=== PATIENT | female | born 1945 | race Caucasian/White ===

== ENCOUNTER 2017-10-29 22:34 | Inpatient (IN) | payer MEDICARE, OTHER ==
[~2017-10-29] VITALS: Ht 170.2 cm; Wt 54.4 kg
--- NOTE | 2017-10-30 00:34 | NUR ---
PRE-ADMISSION NOTE Pt seen in intake office. Pt is not currently intoxicated and not experiencing s/s of withdrawal. Pt appears to be lethargic, but states that hse has been awake for almost 24hrs. V/S: P:75, RR:16, SPO2:96, BP:159/71. Pt is A/O x 4 and has a steady gait. Pt is acceptable for admission to the unit.
[2017-10-30] MEDS ORDERED: ONDANSETRON ODT 4 MG TAB.RAPDIS SL PRN (00:45)
[2017-10-30] MEDS ORDERED: HYDROXYZINE PAMOATE 25 MG CAPSULE PO PRN (00:45)
[2017-10-30] MEDS ORDERED: LORAZEPAM 1 MG TABLET PO PRN ×2 (00:45)
[2017-10-30] MEDS ORDERED: MAG HYDROX/AL HYDROX/SIMETH 30 ML LIQUID UDC PO PRN (00:45)
[2017-10-30] MEDS ORDERED: ONDANSETRON 4 MG/2 ML VIAL IM PRN (00:45)
[2017-10-30] MEDS ORDERED: ACETAMINOPHEN 325 MG TABLET PO PRN (00:45)
[2017-10-30] MEDS ORDERED: MAGNESIUM HYDROXIDE 30 ML LIQUID UDC PO PRN (00:45)
[2017-10-30] MEDS ORDERED: LOPERAMIDE HCL 2 MG CAPSULE PO PRN ×2 (00:45)
[2017-10-30] MEDS ORDERED: diphenhydrAMINE 50 MG CAPSULE PO PRN (00:45)
[2017-10-30] MEDS ORDERED: DICYCLOMINE HCL 20 MG TABLET PO PRN (00:45)
[2017-10-30] MEDS ORDERED: IBUPROFEN 400 MG TABLET PO PRN (00:45)
[2017-10-30] MEDS ORDERED: MIRALAX 17 GM POWD.PACK PO PRN (00:45)
[2017-10-30] MEDS ORDERED: THIAMINE HCL 200 MG/2 ML VIAL IM ONE (01:00)
--- NOTE | 2017-10-30 01:10 | NUR ---
ADMISSION NOTE Pt is a 72 y/o female who is being admitted for medically supervised withdrawal from ETOH, specifically white wine. The pt is not intoxicated and is currently not experiencing any s/s of withdrawal, except for anxiety. Pt appears disheveled, w/ a depressed mood. She is oriented to person, place, time, and purpose. Pts speech is soft and slow, and she states she is tired since she has been awake since her flight left 18 hrs ago. Pt has good eye contact. Pt states that she cant recall any withdrawal signs or symptoms. She did state upon further inquiry that she did become anxious the last time she didnt have a drink for 7 days. Pt denies any h/o withdrawal induced seizures or delirium. Pt also states she has never had a black out. Pt states current substance use as follows: 1. ETOH (White Wine): 750ml daily for the past year. Pts last use was 550ml in the afternoon of 10/28/17. She first began drinking 40yrs ago. She states she is seeing treatment today because Its time to quit drinking. She states her encouraged her to seek treatment. We are both concerned about me drinking at my age and the affect it will have on my health. Last month I was gardening and I couldnt get up off the ground. She states that she began drinking as a way to do deal with stress and as a coping mechanism. I need to find a way to relax other than drinking wine. She states that she has never been to treatment before and has never stopped drinking for more than 10 days at a time. She states that she is ready to do whatever it takes to quit and nothing is out of the question in terms of maintaining sobriety. She would like to continue treatment at [facility] here in [place]. Pt states that her is a really good support system and will encourage her in sobriety. V/S: T:98.4, P:79, RR:16, SPO2:97, BP:139/67. Pt denies any pain. Pulse is strong and regular. Respirations are unlabored and even. Skin is intact. Pt follows a regular diet at home and takes daily vitamins. Pt is allergic to penicillin. She smokes approx. 20 cigarettes per day. Pt doesnt recall the name of her PCP. Pt had pancreatitis in 2017 and was admitted to the hospital for 8 days for a cholecystectomy. Pt doesnt a psychiatrist. Education was provided to her on plan of care including detox medications, group therapy, 1:1 therapy, and discharge planning. She was encouraged to keep open line of communication and verbalize how she is feeling. Verbalized support for pt in her recovery.
[2017-10-30 02:45] LABS: BASOPHILS % (AUTO) 0.7 % (0.0-2.0); EOSINOPHILS # (AUTO) 0.1 K/uL (0.0-0.7); EOSINOPHILS % (AUTO) 1.3 % (0.0-7.0); HEMATOCRIT 42.5 % (31.2-41.9); HEMOGLOBIN 14.3 g/dL (10.9-14.3); LYMPHOCYTES # (AUTO) 1.6 K/uL (20.0-40.0); LYMPHOCYTES % (AUTO) 24.8 % (20.5-51.5); MEAN CORPUSCULAR HEMOGLOBIN 33.9 uug (24.7-32.8); MEAN CORPUSCULAR HGB CONC 34 g/dL (32.3-35.6); MEAN CORPUSCULAR VOLUME 100.9 fL (75.5-95.3); MONOCYTES # (AUTO) 0.9 K/uL (2.0-10.0); MONOCYTES % (AUTO) 14.5 % (0.0-11.0); NEUTROPHILS # (AUTO) 3.7 K/uL (1.8-8.9); NEUTROPHILS % (AUTO) 58.7 % (38.5-71.5); PLATELET COUNT (AUTO) 180 K/uL (179-408); RED BLOOD CELL COUNT(AUTO) 4.21 MIL/uL (3.63-4.92); WHITE BLOOD COUNT (AUTO) 6.3 K/uL (3.8-11.8)
[2017-10-30 02:55] LABS: ALANINE AMINOTRANSFERASE 42 U/L (14-59); ALKALINE PHOSPHATASE 62 U/L (50-136); AMYLASE 91 U/L (25-115); ASPARTATE AMINOTRANSFERASE 34 U/L (15-37); BILIRUBIN,TOTAL 0.5 mg/dL (0.2-1.0); CARBON DIOXIDE 27 mmol/L (21-32); CHLORIDE 103 mmol/L (98-107); CREATININE 0.7 mg/dL (0.6-1.3); GLUCOSE 97 mg/dL (74-106); LIPASE 333 U/L (73-393); MAGNESIUM 2.1 mg/dL (1.8-2.4); POTASSIUM 4.2 mmol/L (3.5-5.1); TOTAL PROTEIN, SERUM 7.4 g/dL (6.4-8.2); UREA NITROGEN, BLOOD 18 mg/dL (7-18)
[2017-10-30 03:06] LABS: THYROID STIMULATING HORMONE 1.742 mIU/mL (0.358-3.740)
[2017-10-30 03:17] LABS: ETHANOL < 3 MG/DL (0-0)
--- NOTE | 2017-10-30 04:02 | NUR ---
CIWA DEFERRED. V/S REFUSED Pt is in bed w/ his eyes closed. Pt's respirations are unlabored and even.
[2017-10-30 04:07] LABS: *AMPHETAMINE, URINE NEGATIVE (NEGATIVE); *BARBITURATE, URINE NEGATIVE (NEGATIVE); *CANNABINOID, URINE NEGATIVE (NEGATIVE); *COCCAINE, URINE NEGATIVE (NEGATIVE); *OPIATE, URINE NEGATIVE (NEGATIVE); *PHENCYCLIDINE SCREEN,URINE NEGATIVE (NEGATIVE)
--- NOTE | 2017-10-30 07:10 | NUR ---
END OF SHIFT NOTE Endorsed pt to oncoming nurse. Pt is a 72 y/o female A/O to person, place, time, and purpose. Pt was admitted for medically supervised withdrawal from ETOH. Pt was not intoxicated and not currently experiencing withdrawal upon admission to the unit. Pt did begin to exhibit anxiety during Initial Assessment. Pt rcvd no PRN medications during shift. Pt denies any S/I or H/I. Pts fluid intake was 750ml and she slept for 4 hrs. Last CIWA 4 @ 0100. Call light is within reach.
[2017-10-30 08:00] VITALS: BP 142/71
--- NOTE | 2017-10-30 08:00 | NUR ---
Start of Shift Notes/CIWA Assessment: Received patient in her room. Awake, alert and verbally responsive. Oriented x 4. Denies S/I or H/I noted. No AV hallucinations. Patient appears anxious, pacing in her room with sweaty palms. Appears disheveled with worried facial expression and demanded to smoke. Patient also demanded to speak with her . Explained unit's policies and procedures. She verbalized good understanding. Gross tremors observed when patient is drinking water from a bottle. CIWA 14. Patient is a 72 year old female admitted for ETOH withdrawal who was placed on PRNs at this time to manage symptoms related to ETOH withdrawal. Per night report, patient did not receive any PRNs. Last CIWA 14. Slept for a total of 6 hours. All needs met and attended. Will continue to monitor closely.
[2017-10-30] MEDS: THIAMINE HCL 100 MG TABLET PO SCH (08:41)
[2017-10-30] MEDS: MULTIVITAMINS,THERAPEUTIC TABLET PO SCH (08:41)
[2017-10-30] MEDS: CLONIDINE HCL 0.1 MG TABLET PO PRN ×2 (08:41→11:35)
[2017-10-30] MEDS: FOLIC ACID 1 MG TABLET PO SCH (08:41)
[2017-10-30] MEDS ORDERED: 5 DAY TAPER OF LORAZEPAM -SERENITY PROTOCOL PO PRN (09:15)
[2017-10-30] MEDS: LORAZEPAM 1 MG TABLET PO SCH ×3 (09:32→20:36)
--- NOTE | 2017-10-30 11:35 | NUR ---
Clonidine 0.1mg PO given: Patient's blood pressure 174/78 while laying down in bed. Patient verbalizes complain of anxiety being in treatment for the first time. Redirection provided. Reassurance provided. Medicated patient with Clonidine 0.1mg PO as ordered. Will monitor for effectiveness.
[2017-10-30 12:00] VITALS: BP 174/78
--- NOTE | 2017-10-30 12:04 | NUR ---
CIWA Assessment: CIWA 12, patient continues to present with s/s of withdrawal m/b facial flushing, gross tremors, sweating, anxiety and agitation. Offered PRNs. Oral fluids encouraged. All needs met and attended. Will continue to monitor.
--- NOTE | 2017-10-30 12:35 | NUR ---
Re-assessment: Clonidine Patient's blood pressure 137/82. She appears less anxious. Less tremors noted. PRN Clonidine was effective.
[2017-10-30 16:00] VITALS: BP 139/72
--- NOTE | 2017-10-30 16:30 | NUR ---
CIWA Assessment: CIWA 11, patient continues to present with anxiety, gross tremors, intermittent perspiration, malaise, fatigue, and generalized discomfort. Oral fluids encouraged. Continue with current taper meds as ordered.
--- NOTE | 2017-10-30 19:02 | NUR ---
End of Shift Notes: Patient initiated her 4-day Ativan taper to manage symptoms related to ETOH withdrawal. VS monitored closely. Noted with elevated blood pressure during the day requiring patient to be medicated with Clonidine 0.1mg PO for elevated blood pressure at 1135. Withdrawal symptoms were closely monitored. Initial CIWA 14, patient presented with anxiety, agitation, fatigue, malaise, difficulty concentrating, gross tremors, intermittent perspiration, facial flushing, dark circles around eyes, slumped posture, worried and suspicious, anhedonia, irritable, paranoid, restricted, guarded and generalized discomfort. Last CIWA 11. Patient was unable to participate in group and activities due to her withdrawal symptoms. Oral fluids encouraged. All needs met and attended. Will continue to monitor closely.
--- NOTE | 2017-10-30 19:50 | NUR ---
START OF SHIFT NOTE Rcvd report from outgoing nurse. Pt is a 72 y/o female A/O to person, place, time, and purpose. Pt was admitted for medically supervised withdrawal from ETOH. Pt is on day 1 of 4 day Ativan taper. Pt has been presenting w/ anxiety, flat affect, depressed mood, sweats, lethargy, and tremors. PRN Clonidine was given for elevated BP, noted effective by outgoing nurse. Last CIWA 11 @ 1600. Call light is within reach. Pt will continue to be monitored and needs met.
[2017-10-30 20:05] VITALS: BP 105/51
--- NOTE | 2017-10-30 20:05 | NUR ---
CIWA ASSESSMENT CIWA 10. Pt has been presenting w/ anxiety, flat affect, depressed mood, sweats, lethargy, and tremors. V/S: T:97.9, P:70, RR:14, SPO2:96, BP:108/51.
--- NOTE | 2017-10-31 00:04 | NUR ---
CIWA DEFERRED. V/S REFUSED Pt is in bed w/ her eyes closed. Pt's respirations are unlabored and even.
--- NOTE | 2017-10-31 04:12 | NUR ---
CIWA DEFERRED. V/S REFUSED Pt is in bed w/ her eyes closed. Pt's respirations are unlabored and even.
--- NOTE | 2017-10-31 07:13 | NUR ---
END OF SHIFT NOTE Endorsed pt to oncoming nurse. Pt is a 72 y/o female A/O to person, place, time, and purpose. Pt was admitted for medically supervised withdrawal from ETOH. Pt completed day 1 of 4 day Ativan taper. Pt continues presenting w/ anxiety, flat affect, depressed mood, sweats, lethargy, and tremors. Pt denies any S/I or H/I. Pt rcvd no PRN medications during current shift. Pts fluid intake was 500ml and she slept for 11 hrs. Last CIWA 10 @ 2000. Call light is within reach.
[2017-10-31 08:00] VITALS: BP 176/82
--- NOTE | 2017-10-31 08:00 | NUR ---
Start of Shift Notes/CIWA Assessment: Patient is a 72 year old female admitted for ETOH withdrawal who was placed on a 4-day Ativan taper as ordered. Per night report, patient received No PRNs. Slept for 9 hours. Last CIWA 10. Received patient in her room. Awake, alert and oriented x 4. Denies S/I or H/I. No AV hallucinations noted. Patient appears flushed, tired, dark circles around eyes. Empty water bottles noted in the room. She appears disheveled, unwashed hair and clothing and with slumped posture. She is noted with gross tremors, complains of increased anxiety upon waking and easily irritable. She also verbalizes that she is worried about her and becomes suspicious with meds. CIWA 14. Explained to the patient that she is here to safety detox and detox meds are for her safety and for seizure prevention. Educated patient on her current plan of care for the day and her medication regimen. Encouraged oral fluid intake and encouraged group participation to learn new skills to prevent relapse. All needs met and attended. Will continue to monitor.
[2017-10-31] MEDS: LORAZEPAM 1 MG TABLET PO SCH ×4 (08:05→20:48)
[2017-10-31] MEDS: THIAMINE HCL 100 MG TABLET PO SCH (08:05)
[2017-10-31] MEDS: CLONIDINE HCL 0.1 MG TABLET PO PRN (08:05)
[2017-10-31] MEDS: FOLIC ACID 1 MG TABLET PO SCH (08:05)
[2017-10-31] MEDS: MULTIVITAMINS,THERAPEUTIC TABLET PO SCH (08:05)
--- NOTE | 2017-10-31 08:05 | NUR ---
Clonidine 0.1mg PO given: Patient's blood pressure 176/82, Pulse 73. Denies any complains of chest pain, discomfort, light headedness, or dizzinesss. Patient verbalizes anxiety and worry. Reassurance and redirection provided. Medicated patient with Clonidine 0.1mg PO as ordered. Will monitor for effectiveness.
[2017-10-31] MEDS ORDERED: TUBERCULIN,PURIF.PROT.DERIV. 5 TU/0.1 ML TEST ID ONE (09:00)
--- NOTE | 2017-10-31 09:05 | NUR ---
Re-assessment: Clonidine Patient's blood pressure 145/92, Pulse 69. She appears more calm. PRN Clonidine was effective.
--- NOTE | 2017-10-31 10:38 | NUR ---
Therapist prompted client to attend group therapy.
[2017-10-31 11:06] LABS: HEPATITIS B SURFACE AG Negative (Negative)
[2017-10-31 12:00] VITALS: BP 130/67
--- NOTE | 2017-10-31 12:16 | NUR ---
CIWA Assessment: CIWA 12, patient continues to present with gross tremors, anxiety and agitation. She also complains of intermittent perspiration. Will continue with detox meds as ordered.
--- NOTE | 2017-10-31 14:52 | NUR ---
New Orders: PT Eval Dr. Syed put in orders for patient to have PT eval due to generalized weakness and ataxia. No need 1:1 at this time. Patient is able to ambulate with slow steady gait.
[2017-10-31 16:00] VITALS: BP 138/74
--- NOTE | 2017-10-31 16:18 | NUR ---
CIWA Assessment: CIWA 10, patient continues to present with intermittent perspiration, generalized discomfort, anhedonia, difficulty concentrating, gross tremors, anxiety and agitation. Will continue with detox meds as ordered. Oral fluids encouraged.
--- NOTE | 2017-10-31 19:02 | NUR ---
End of Shift Notes: Patient continues to be on 4-day Ativan taper to manage symptoms related to ETOH withdrawal. VS monitored closely. Noted with elevated blood pressure during the day requiring patient to be medicated with Clonidine 0.1mg PO for elevated blood pressure at 0805. Withdrawal symptoms were closely monitored. Initial CIWA 14, patient presented with anxiety, agitation, fatigue, malaise, difficulty concentrating, gross tremors, intermittent perspiration, elevated blood pressure, facial flushing, dark circles around eyes, slumped posture, worried, anhedonia, irritability, guarded and generalized discomfort. Last CIWA 10. Patient was unable to participate in group and activities due to her withdrawal symptoms. PT eval ordered for generalized ataxia and weakness. Oral fluids encouraged. All needs met and attended. Will continue to monitor closely.
--- NOTE | 2017-10-31 19:48 | NUR ---
START OF SHIFT NOTE Rcvd report from outgoing. Pt is a 72 y/o female A/O to person, place, time, and purpose. Pt was admitted for medically supervised withdrawal from ETOH. Pt is on day 2 of a 4 day Ativan taper. Pt has been presenting w/ tremors, sweats, anxiety, worried demeanor, flat affect, and depressed mood. PRN Clonidine was given for elevated BP and was noted effective by outgoing nurse. Last CIWA 10 @ 1600. Call light is within reach. Pt will continue to be monitored and needs met.
--- NOTE | 2017-10-31 20:05 | NUR ---
CIWA ASSESSMENT CIWA 10. Pt has been presenting w/ tremors, sweats, anxiety, worried demeanor, flat affect, and depressed mood. V/S: T:97.9, P:81, RR:14, SPO2:98, BP:145/67.
[2017-10-31 20:49] VITALS: BP 145/67
--- NOTE | 2017-11-01 00:13 | NUR ---
CIWA DEFERRED. V/S REFUSED Pt is in bed w/ her eyes closed. Pt's respirations are unlabored and even.
--- NOTE | 2017-11-01 04:07 | NUR ---
CIWA DEFERRED. V/S REFUSED Pt is in bed w/ her eyes closed. Pt's respirations are unlabored and even.
--- NOTE | 2017-11-01 07:10 | NUR ---
END OF SHIFT NOTE Endorsed pt to oncoming nurse. Pt is a 72 y/o female A/O to person, place, time, and purpose. Pt was admitted for medically supervised withdrawal from ETOH. Pt completed day 2 of a 4 day Ativan taper. Pt continues presenting w/ tremors, lethargy, anxiety, worried demeanor, flat affect, and depressed mood. Pt denies S/I and H/I. No PRN medication was given current shift. Pts fluid intake was 1000ml and she slept for 12 hrs. Last CIWA 10 @ 2000. Call light is within reach.
--- NOTE | 2017-11-01 07:40 | NUR ---
START OF SHIFT Received report from security shift manager nurse. Pt is lying in bed resting with eyes closed and is easily arousable. She is a 72 yo female admitted to [facility] on 10/30 for ETOH withdrawal. 4 day Ativan taper started on 10/30. No PRN medications administered on nightshift. Last CIWA was 10 and she slept for 12 hours last night. Respirations even and unlabored. Skin is warm and moist. Safety measures in place.
[2017-11-01 08:00] VITALS: BP 92/50
[2017-11-01] MEDS: FOLIC ACID 1 MG TABLET PO SCH (08:54)
[2017-11-01] MEDS: THIAMINE HCL 100 MG TABLET PO SCH (08:54)
[2017-11-01] MEDS: MULTIVITAMINS,THERAPEUTIC TABLET PO SCH (08:54)
[2017-11-01] MEDS: LORAZEPAM 1 MG TABLET PO SCH ×3 (08:54→21:22)
--- NOTE | 2017-11-01 09:00 | NUR ---
CIWA Assessment Pt observed with facial flushing. She denies tremors and they are not visible when holding her hands straight out but mild tremors are observed with pt is drinking from a water bottle. She reports mild anxiety and appears restless. CIWA score 9.
[2017-11-01 12:30] VITALS: BP 114/75
--- NOTE | 2017-11-01 12:30 | NUR ---
CIWA assessment Pt has reports mild anxiety. She is observed with mild tremors and has moist skin. Ativan is working well to mange withdrawal symptoms. CIWA 7.
[2017-11-01 16:30] VITALS: BP 160/67
--- NOTE | 2017-11-01 16:30 | NUR ---
CIWA assessment Pt is having anxiety with elevated B/P. Mild tremors and facial flushing observed. B/P 160/67. CIWA score 10.
--- NOTE | 2017-11-01 17:08 | NUR ---
END OF SHIFT Report provided to photography manager nurse. Pt is lying in bed resting after finishing dinner. She is a 72 yo female admitted to [facility] on 10/30 for ETOH withdrawal. 4 day Ativan taper started on 10/30. PRN Clonidine administered for elevated B/P and effective. She did not attend any group meetings throughout the day although she was encouraged. Last CIWA was 10. She drank 2700mL and ate 100% of meals. Safety measures in place.
[2017-11-01] MEDS: CLONIDINE HCL 0.1 MG TABLET PO PRN (17:21)
--- NOTE | 2017-11-01 17:25 | NUR ---
PRN Clonidine Pt's B/P is 167/67. She denies pain or discomfort. PRN Clonidine administered.
[2017-11-01 18:00] VITALS: BP 111/56
--- NOTE | 2017-11-01 18:00 | NUR ---
PRN Clonidine reassessment PRN Clonidine effective. She reports feeling less anxious and is lying in bed resting. B/P 111/56 and HR 68.
[2017-11-01 20:00] VITALS: BP 121/58
--- NOTE | 2017-11-01 20:00 | NUR ---
Start of Shift Patient appears quiet, isolative and avoids conversation. Patient is noted to be flushed, with sweating and tremors. Patient verbalized feeling "a great deal of anxiety." Patient also stated that she feels "sad" and observed to be in depressed mood. Provided education and reassurance regarding medications and treatment. Patient continues to be on 4-day Ativan taper that was started on 10/30/2017. Fall, universal, seizure and safety prec in place. Call light within reach. Latest CIWA=8. Will continue to monitor.
[2017-11-02] VITALS (7 sets, daily range): BP systolic 130–177; BP diastolic 63–87
--- NOTE | 2017-11-02 | NUR ---
CIWA=8 Patient with "on and off" anxiety, with bilateral hand tremors and continues to be melancholic and with depressed mood.
--- NOTE | 2017-11-02 04:00 | NUR ---
CIWA=10 Patient with bilateral hand tremors, anxiety and with moist forehead. Patient continues to appear melancholic. Patient verbalized that she would continue back to sleep. Will continue to monitor.
--- NOTE | 2017-11-02 07:26 | NUR ---
End of Shift Patient continues to be melancholic and in depressed mood, with mild nausea, flushed and moist skin on face and with bilateral hand tremors. Patient observed to be easily distracted. Fall, universal, seizure and safety prec in place. Call light within reach. Latest CIWA=8, slept for 9 hours. Endorsed to AM shift nurse for continuity of care.
--- NOTE | 2017-11-02 07:30 | NUR ---
START OF SHIFT NOTE Received report from night nurse, 76 year old female admitted for ETOH withdrawal. Patient continues with her 4 days Ativan taper tolerated well. Per endorsement patient did not receive any PRN medications last CIWA score was 8, slept for 9 hours. Received patient alert awake oriented x4 watching TV in her room reported feeling little anxious, agitated, bilateral hand tremors noted. patient is due for schedule medications. All safety measures in place, Call light within reach. Will cont to monitor.
[2017-11-02] MEDS: MULTIVITAMINS,THERAPEUTIC TABLET PO SCH (08:24)
[2017-11-02] MEDS: FOLIC ACID 1 MG TABLET PO SCH (08:24)
[2017-11-02] MEDS: LORAZEPAM 1 MG TABLET PO SCH ×2 (08:24→20:13)
[2017-11-02] MEDS: THIAMINE HCL 100 MG TABLET PO SCH (08:24)
[2017-11-02] MEDS: CLONIDINE HCL 0.1 MG TABLET PO PRN ×2 (08:25→20:13)
--- NOTE | 2017-11-02 08:25 | NUR ---
CIWA ASSESSMENT/PRN CLONIDINE CIWA score noted -12. Patient presented with labile facial expression anxiety, agitation, restless, anhedonia, irritability, diaphoresis, bilateral hand tremors. Patient also noted with increased blood pressure 177/74, PRN Clonidine 0.1mg PO was administered along with morning scheduled medications. All safety measures in place. Will reassess the patient for clonidine.
--- NOTE | 2017-11-02 09:11 | NUR ---
Therapist prompted client to attend all group therapy sessions.
--- NOTE | 2017-11-02 09:25 | NUR ---
CLONIDINE REASSESSMENT Patient's blood pressure noted 157/70,Clonidine was effective.
--- NOTE | 2017-11-02 12:00 | NUR ---
CIWA ASSESSMENT CIWA score noted -13. Patient continues to exhibits s/s of withdrawal such as anxiety, agitation, restless, anhedonia, irritability, poor eye contact, uncombed hair, bilateral hand tremors. Encourage patient to use diversional activities to alleviate sis of withdrawal. All safety measures in place.
--- NOTE | 2017-11-02 16:00 | NUR ---
CIWA ASSESSMENT CIWA score noted -11. Patient is sitting in her room watching TV continues to exhibits s/s of withdrawal such as anxiety, agitation, restless, anhedonia, irritability, uncombed hair, bilateral hand tremors. Encourage patient to use non pharmacological intervention to alleviate s/s of withdrawal. All safety measures in place.
--- NOTE | 2017-11-02 19:15 | NUR ---
END OF SHIFT NOTE Gave report to night nurse, patient continues with her Ativan taper tolerating well. Patient presented with flushed face, increased anxiety, agitation, diaphoresis, fatigue, restless, increased blood pressure patient received her scheduled medication and also received PRN Clonidine for increased blood pressure noted to be effective. Vital signs WNL. Encouraged patient to use diversional activities to alleviate anxiety. Patient denies any SI/HI. All needs attended. Endorse care to night nurse.
--- NOTE | 2017-11-02 20:00 | NUR ---
Start of Shift Patient is isolative and noted to be depressed. Patient observed to have bilateral hand tremors, sweating and is with flushed face. Provided education regarding Progressive Muscle Relaxation. She stated that she feels better today than yesterday. Patient continues on her 4-day Ativan taper. Fall, universal, seizure and safety prec in place. Call light within reach. Latest CIWA=10. Will continue to monitor.
--- NOTE | 2017-11-02 20:14 | NUR ---
PRN Clonidine Patient with elevated SD=582/87, asymptomatic. Administered Clonidine 0.1 mg PO PRN. Will reassess.
--- NOTE | 2017-11-02 21:15 | NUR ---
Clonidine reassess BP fxluwgl=193/69, Pulse=58.
[2017-11-03] VITALS: BP 137/74
--- NOTE | 2017-11-03 | NUR ---
CIWA CIWA deferred. Pt laying in bed with eyes closed and resting. Respirations even and unlabored. Continue to monitor.
--- NOTE | 2017-11-03 | NUR ---
CIWA=8 Patient presents with tremors, intermittent nausea and observed to have a flushed face. Patient denies pain at this time. Patient is isolative and melancholic.
[2017-11-03 04:00] VITALS: BP 146/78
--- NOTE | 2017-11-03 04:00 | NUR ---
CIWA=9 Patient continues to have flushed skin, intermittent nausea, bilateral hand tremors and with anxiety.
--- NOTE | 2017-11-03 07:16 | NUR ---
End of Shift Patient continues to be in depressed mood, with intermittent nausea, is flushed , with moist skin and with bilateral hand tremors. Patient with blunted affect and appears worried. Fall, universal, seizure and safety prec in place. Call light within reach. Latest CIWA=9, slept for 8 hours. Endorsed to AM shift nurse for continuity of care.
--- NOTE | 2017-11-03 07:30 | NUR ---
Start Of Shift Patient is a 72 yr old female who was admitted to [facility] on 10/29/17 for a medically supervised withdrawal from ETOH ( wine), she has completed a 5 day Ativan taper. PRN Clonidine was given on PM shift, she slept for 8 hours and last CIWA was 8. Currently she is awake sitting on side of bed and voices no concerns, her face is flushed and she seems anxious. Continue to follow MD plan of care and offer support and encouragement.
[2017-11-03 08:00] VITALS: BP 172/84
--- NOTE | 2017-11-03 08:00 | NUR ---
CIWA 10 Withdrawal symptoms present as decreased appetite, fine bilateral hand tremors and anxiety. No PRN medications were requested though were offered.
[2017-11-03] MEDS: FOLIC ACID 1 MG TABLET PO SCH (09:33)
[2017-11-03] MEDS: THIAMINE HCL 100 MG TABLET PO SCH (09:33)
[2017-11-03] MEDS: MULTIVITAMINS,THERAPEUTIC TABLET PO SCH (09:33)
[2017-11-03 12:00] VITALS: BP 143/76
--- NOTE | 2017-11-03 12:00 | NUR ---
CIWA 10 Withdrawal symptoms present as decreased appetite, fine bilateral hand tremors, flushed face and anxiety. No PRN medications were requested though were offered.
[2017-11-03 16:00] VITALS: BP 156/79
--- NOTE | 2017-11-03 16:00 | NUR ---
CIWA 10 Withdrawal symptoms present as fine bilateral hand tremors, flushed face and anxiety. No PRN medications were requested though were offered.
--- NOTE | 2017-11-03 19:20 | NUR ---
Start of Shift Note Received 72 year old admitted to [facility] for medically supervised withdrawal from ETOH on 10/29/17. Pt completed 5 day Ativan taper. Per endorsement pt has planned discharge to Rehab in am. No PRN medications given. Last CIWA 11 @1600. Pt in room awake, alert, mild flushed, fidgety, and preoccupied with discharge plans. Safety measures in use and will continue to monitor.
--- NOTE | 2017-11-03 19:43 | NUR ---
End Of Shift Patient is a 72 yr old female who was admitted to [facility] on 10/29/17 for a medically supervised withdrawal from ETOH ( White Wine), she has completed a 4 day Ativan taper and will be discharged tomorrow AM 11/04/17 to "[facility] No PRN medications were required or requested on this shift, she had a fluid intake of 2900 ML, 7 Voids and 1 BM, her last CIWA was 10 @ 1600. Her withdrawal symptoms have included flushed face, decreased appetite and anxiety. Continue to follow MD plan of care and offer support and encouragement. Endorsed to web site developer nurse.
[2017-11-03 20:00] VITALS: BP 143/56
--- NOTE | 2017-11-04 | NUR ---
CIWA Deferred/Vitals Refused Patient is noted in bed sleeping. Breathing even and non labored. Vitals Refused. CIWA was not able to be completed as per order. Will continue to monitor.
--- NOTE | 2017-11-04 04:00 | NUR ---
Vitals Refused patient is noted in bed sleeping. Breathing even and non labored. No signs of restlessness or facial grimacing noted. CIWA not completed as per ordered. Will continue to monitor.
--- NOTE | 2017-11-04 06:31 | NUR ---
End of Shift Note Pt is 72 year old admitted to [facility] for medically supervised withdrawal from ETOH on 10/29/17. Pt completed 5 day Ativan taper. Pt to be discharged to Rehab this am. No PRN medications given. Last CIWA 8 @1999. Pt in room awake, alert, mild flushed, fidgety, and preparing for discharge. Intake 1000 ml, voided x 2, BM X 0, and slept X 7 hours. Safety measures in use. Endorsed care to day shift.
--- NOTE | 2017-11-04 07:15 | NUR ---
BEGINNING OF SHIFT Patient endorsement report received from material handler 2nd shift nurse, all pertinent information was discussed. Patient is a 72 year old female admitting DX: etoh withdrawal. Patient completed 4 day Ativan taper as ordered, and is scheduled to be discharged this morning. Per material handler 2nd shift, received no PRN medications during material handler 2nd shift. Last ciwa score of: 8. Slept for 7 hours. Patient received in room, with eyes closed, respirations even and unlabored, responsive to verbal stimuli. Will educate patient regarding plan of care for the day and medication regimen, will also educate regarding all discharge instructions. Safety measures are in place. call light with in reach, will continue to monitor closely.
[2017-11-04 08:49] VITALS: BP 140/62
[2017-11-04] MEDS: FOLIC ACID 1 MG TABLET PO SCH (08:52)
[2017-11-04] MEDS: THIAMINE HCL 100 MG TABLET PO SCH (08:52)
[2017-11-04] MEDS: MULTIVITAMINS,THERAPEUTIC TABLET PO SCH (08:52)
--- NOTE | 2017-11-04 09:58 | NUR ---
DISCHARGE Patient discharged off the unit in stable condition, not in any apparent acute distress. vital signs WNL. Patient with last CIWA score of: 5. Patient was provided with education and teaching prior to discharge with good verbal understanding. patient did not bring any home medications, no prescritions were prescribed by MD. Patients discharge instructions were placed in patients personal duffel bag. Patient off the unit in stable condition at [id number]
== END 2017-11-04 09:58 | DRG 895 ==
LOC: SRC 23:42
PROVIDERS: ADMIT Family Medicine Addiction Medicine; ATTEND Internal Medicine
PROC: HZ2ZZZZ Detoxification Services for Substance Abuse Treatment (ICD-10-PCS; principal; 2017-10-29)
PROC: HZ31ZZZ Individual Counseling for Substance Abuse Treatment, Behavioral (ICD-10-PCS; 2017-10-31)
DX: F10.230 Alcohol dependence with withdrawal, uncomplicated (principal); Y90.0 Blood alcohol level of less than 20 mg/100 ml; F17.210 Nicotine dependence, cigarettes, uncomplicated; F41.9 Anxiety disorder, unspecified; Z90.49 Acquired absence of other specified parts of digestive tract; Z87.19 Personal history of other diseases of the digestive system; Z86.39 Personal history of other endocrine, nutritional and metabolic disease
CPT/HCPCS: 36415; 70030-TC; 80307; 83690; 83735; 84443; 85025; 86580; 86592; 86705; 86803; 87340; 87806; A4663; G0480